=== PATIENT | female | born 1985 | race Caucasian/White ===

== ENCOUNTER 2017-08-09 05:32 | Inpatient (IN) | payer OTHER ==
[~2017-08-09] VITALS: Ht 170.2 cm; Wt 78.9 kg
[2017-08-09] VITALS (9 sets, daily range): BP systolic 105–126; BP diastolic 60–72
[~2017-08-09 05:32] MED LIST: ENDOCET 5-3251 EACH PO; FLEXERIL10 MG PO; IBUPROFEN800 MG PO; Motrin PO; PRENATAL TABLE1 EAC3 PO; Percocet 5/325,Endoc PO; TYLENOL COLD-F240 ML PO; TYLENOL EXTRA500 MG PO; VALTREX50 MG/ML PO
[2017-08-09 06:17] LABS: HEMATOCRIT 31.7 % (36.0-46.0); MCH 31.1 PG (29.0-34.0); MCHC 33.4 G/DL (30.0-36.0); MEAN PLAT.VOLUME 10.7 uM^3 (9.5-12.4); PLATELET COUNT 147 K/uL (156-360); RBC DIS.WIDTH-CV 14.1 % (11.8-14.6); RBC DIS.WIDTH-SD 46.7 % (39-53); RED BLOOD COUNT 3.41 M/uL (3.80-5.20); WHITE BLOOD COUNT 7.1 K/uL (4.1-10.2)
[2017-08-09] MEDS ORDERED: IBUPROFEN800 MG PO (20:34)
[2017-08-09] MEDS ORDERED: ENDOCET 5-3251 EACH PO (20:34)
[2017-08-10 02:44] VITALS: BP 103/57
[2017-08-10 07:19] VITALS: BP 112/57
[2017-08-10 07:52] LABS: EOSINOPHIL (%) 1.5 % (0-5); EOSINOPHIL COUNT 0.1 K/uL (0-0.3); HEMATOCRIT 30.2 % (36.0-46.0); IMMATURE GRANULOCYTE (%) 0.5 % (0.0-0.7); IMMATURE GRANULOCYTE COUNT 0.1 K/uL; INSTRUMENT ABS NEUTROPHIL CT 5.9 K/uL; LYMPHOCYTE COUNT 2.8 K/uL (1.0-2.8); MCH 32.4 PG (29.0-34.0); MCHC 34.1 G/DL (30.0-36.0); MEAN PLAT.VOLUME 10.8 uM^3 (9.5-12.4); MONOCYTE (%) 5.8 % (3-12); MONOCYTE COUNT 0.6 K/uL (0-0.8); NEUTROPHIL (%) 62.2 % (45-76); NEUTROPHIL COUNT 5.9 K/uL (1.8-6.4); PLATELET COUNT 146 K/uL (156-360); RBC DIS.WIDTH-CV 14.5 % (11.8-14.6); RBC DIS.WIDTH-SD 49.4 % (39-53); RED BLOOD COUNT 3.18 M/uL (3.80-5.20); WHITE BLOOD COUNT 9.5 K/uL (4.1-10.2)
[2017-08-10 11:32] VITALS: BP 109/63
[2017-08-10 14:42] VITALS: BP 115/58
[2017-08-10 19:30] VITALS: BP 105/63
[2017-08-10 23:28] VITALS: BP 131/66
[2017-08-11 02:54] VITALS: BP 100/59
[2017-08-11 07:16] VITALS: BP 111/53
[2017-08-11 15:35] VITALS: BP 97/60
[2017-08-11 22:19] VITALS: BP 112/57
[2017-08-12 08:00] VITALS: BP 109/56
== END 2017-08-12 13:38 | disposition home or self-care (01) | DRG 765 ==
LOC: 2WEST 05:32 → 2SOUTH 12:21 → 2WEST 08-12 13:38
PROVIDERS: Obstetrics & Gynecology
DX: O34.211 Maternal care for low transverse scar from previous cesarean delivery (principal); O98.32 Other infections with a predominantly sexual mode of transmission complicating childbirth; A60.09 Herpesviral infection of other urogenital tract; O69.81X0 Labor and delivery complicated by cord around neck, without compression, not applicable or unspecified; Z30.2 Encounter for sterilization; Z3A.39 39 weeks gestation of pregnancy; Z37.0 Single live birth; Z87.410 Personal history of cervical dysplasia
CPT/HCPCS: 36415; 85025; 85027; 86850; 86900; 86901; 88302; J0690; J1100; J2274; J2405; J3010; J7120